=== PATIENT | male | born 2000 ===

== ENCOUNTER → 2025-02-15 | Outpatient (REF) | payer OTHER ==
[2025-02-15 10:43] LABS: SEMEN APPEARANCE OPAQUE (OPAQUE); SEMEN VISCOSITY LIQUID (LIQUID); SEMEN VOLUME 2.7 ml (2.0-5.0)
[2025-02-15 10:44] LABS: SPERM CONCENTRATION 103.8 M/ml (>=15.0); WBC CONCENTRATION <=1 M/ml (<=1 M/ml)
[2025-02-15 10:45] LABS: TOTAL PROGRESSIVE SPERM 97.7 M/Ejac.
== END ==
LOC: M LAB REF 10:24
PROVIDERS: ATTEND Obstetrics & Gynecology
DX: N46.8 Other male infertility (principal)